=== PATIENT | female | born 1970 | race Caucasian/White ===

== ENCOUNTER 2020-12-17 12:22 | Outpatient (REF) | payer OTHER, SELFPAY ==
--- NOTE | 2020-12-17 10:50 | PAPFT_PTH ---
PATIENT: Amisha Chen LOC: [facility] U#:[id number] AGE/SX: 50/F ROOM: RE12/17/[address]: FLAQUITO Martinez : 1970 BED: DIS: 12/17/2020 SPEC #: [id number] RECD: 12/17/20 12:34 STATUS: TORRIENga REQ #: [id number] TAL: 12/17/20 10:[address]: Marlin Carmen DEPT: [facility] Cytology RECD BY: Arina Almanza ENTERED: 12/17/20 12:35 SP TYPE: PAPFT OTHR DR: Sindy Thomas Tissues: 1 - CX/ENDOCX FOR PAP SMEARS Procedures: PAP THIN PREP/UVM Screening HPV DNA PROBE Comments: [id number]
== END 2020-12-17 12:23 | disposition home or self-care (01) ==
LOC: LBN 12:22
PROVIDERS: PCP Family Medicine; Visit Provider Nurse Practitioner Family
DX: Z12.4 Encounter for screening for malignant neoplasm of cervix (principal); Z11.51 Encounter for screening for human papillomavirus (HPV); Z01.419 Encounter for gynecological examination (general) (routine) without abnormal findings
CPT/HCPCS: 88142; 87624

== ENCOUNTER 2021-01-12 02:37 | Outpatient (CLI) | payer OTHER, SELFPAY ==
--- NOTE | 2021-01-12 08:00 | DI.MAMMO_ITS ---
Exam(s) MAMMO SCREENING EXAM: MAMMO SCREENING CLINICAL HISTORY: screening,Z12.39 TECHNIQUE: Mammograms were interpreted according to the usual protocol including computer analysis w Xtract CAD system, tomosynthesis and C-view imaging. COMPARISON: FINDINGS: The breasts are heterogeneously dense. No dominant mass or clumped microcalcification is identified in either breast. The current examination is compared with previous examination of 2013 and there is new incompletely visualized area of focal nodularity seen in the lateral retroareolar portion of the left breast on CC view only. Possibility of a small new breast mass is raised. Additional mammogra phic views of the left breast are requested to include CC spot compression view. Breast ultrasound r ecommended as well. No other significant change seen. IMPRESSION: Additional mammographic views left breast and left breast ultrasound requested as described above. BI-RADS Category 0 - Assessment Incomplete: Need additional imaging evaluation Breast Density - Category C - Heterogeneously dense
--- NOTE | 2021-01-12 08:00 | DI.US_ITS ---
Exam(s) US PELVIS TRANSVAGINAL EXAM: US PELVIS TRANSVAGINAL CLINICAL HISTORY: Menorrhagia,N92.0 TECHNIQUE: Ultrasound performed using standard protocol. COMPARISON: US RIGHT BREAST ULTRASOUND from 08/30/2013 FINDINGS: Pelvic ultrasound was performed transabdominally and transvaginally. The uterus measures 8.6 x 3.8 x 5.1 cm. No focal myometrial abnormality seen. Endometrial stripe is about 7 millimeters in thickne ss and appears homogeneous, please correlate with menstrual status. No free fluid in the cul-de-sac. Limited scanning of the kidneys is unremarkable. The ovaries have a normal follicular appearance. Right ovary measures 23 x 21 x 17 millimeters and l eft ovary measures 25 x 27 x 19 millimeters. IMPRESSION: Negative pelvic ultrasound. DATA REPOSITORY:
== END 2021-01-12 02:57 ==
PROVIDERS: PCP Family Medicine; Visit Provider Nurse Practitioner Family
DX: Z12.31 Encounter for screening mammogram for malignant neoplasm of breast; N92.0 Excessive and frequent menstruation with regular cycle
CPT/HCPCS: 77063; 77067; 76830; 76856

== ENCOUNTER 2021-01-14 17:17 | Outpatient (REF) | payer OTHER, SELFPAY ==
--- NOTE | 2021-01-14 16:00 | ENDOMET_PTH ---
PATIENT: Amisha Chen LOC: N U#:[id number] AGE/SX: 50/F ROOM: RE01/14/[address]: Shirley Santos : 1970 BED: DIS: 01/14/2021 SPEC #: [id number] RECD: 01/14/21 17:25 STATUS: JULIAN REMinnie #: [id number] TAL: 01/14/21 16:[address]: Shirley Santos DEPT: Surgical Specimen RECD BY: Flavia Winn ENTERED: 01/14/21 17:25 SP TYPE: Endomet OTHR DR: Sindy Thomas Tissues: 1 - ENDOMETRIUM BX/MAURICIO Procedures: GROSS AND MICRO LEVEL 4 Comments: [id number]
== END 2021-01-14 17:18 | disposition home or self-care (01) ==
LOC: LBN 17:17
PROVIDERS: PCP Family Medicine; Visit Provider Obstetrics & Gynecology Gynecology
DX: N84.0 Polyp of corpus uteri (principal); N93.8 Other specified abnormal uterine and vaginal bleeding; N88.8 Other specified noninflammatory disorders of cervix uteri
CPT/HCPCS: 88305

== ENCOUNTER 2021-02-05 03:34 | Outpatient (CLI) | payer OTHER, SELFPAY ==
--- NOTE | 2021-02-05 | DI.US_ITS ---
Exam(s) MG MAMMO SCREEN CALL BACK UNI US BREAST LT LIMITED EXAM: US BREAST LT LIMITED CLINICAL HISTORY: F/U TO ABNL MAMMO AND SPOTS, FOCAL NODULARITY LT TECHNIQUE: Ultrasound performed using standard protocol. COMPARISON: US US PELVIS TRANSVAGINAL from 01/12/2021 FINDINGS: Additional mammographic views of left breast and left breast ultrasound are interpreted in conjunctio n. These examinations were obtained to evaluate new area of nodularity seen in the lower outer quadr ant of the left breast on recent mammogram. Additional mammographic views show a well-circumscribed 6 millimeter in diameter mass. Breast ultrasound shows a simple cyst measuring about 5 millimeters i n greatest diameter in the 3 o'clock position about 2 cm from nipple, corresponding to the mammograph ically identified abnormality. Breast ultrasound and additional mammographic view showed no other suspicious findings. IMPRESSION: No specific evidence of malignancy at this time. I would suggest that routine screening examinations resume with a bilateral mammogram in 12 months. BI-RADS Cat 2 - Benign Findings Breast Density - Category C - Heterogeneously dense DATA REPOSITORY:
== END 2021-02-05 03:54 ==
PROVIDERS: PCP Family Medicine; Visit Provider Nurse Practitioner Family
DX: R92.8 Other abnormal and inconclusive findings on diagnostic imaging of breast (principal); N60.02 Solitary cyst of left breast
CPT/HCPCS: 76642; 77063; 77067

== ENCOUNTER 2021-03-01 01:52 | Outpatient (CLI) | payer OTHER, SELFPAY ==
[2021-03-01 08:27] LABS: HCT 43.2 % (36.0-46.0); HGB 13.7 g/dL (11.2-15.7); MCH 27.2 pg (27.0-33.0); MCHC 31.7 % (32.0-36.0); MCV 85.9 fL (80-95); MPV 9.1 fL (8.0-11.0); Platelet Count 408 10^3/uL (130-400); RBC 5.03 10^6/uL (3.93-5.22); RDW 13.6 % (11.7-14.6); RDW-SD 42.8 fL; WBC 11.05 10^3/uL (4.4-10.8)
[2021-03-01 09:18] LABS: Anion Gap 5.6 mmol/L (3-11); BUN 6 mg/dL (7-18); CO2 24.4 mmol/L (21.0-32.0); CREATININE 0.8 mg/dL (0.55-1.02); Calcium 9.3 mg/dL (8.5-10.1); Chloride 109 mmol/L (98-107); Glucose 84 mg/dL (74-106); Potassium 4.2 mmol/L (3.5-5.1); Sodium 139 mmol/L (136-145)
== END 2021-03-01 01:53 | disposition home or self-care (01) ==
LOC: LBO 01:53
PROVIDERS: PCP Family Medicine; Visit Provider Obstetrics & Gynecology Gynecology
DX: N92.0 Excessive and frequent menstruation with regular cycle (principal); N94.6 Dysmenorrhea, unspecified; Z01.818 Encounter for other preprocedural examination; Z01.812 Encounter for preprocedural laboratory examination
CPT/HCPCS: 36415; 80048; 85027; 86850; 86900; 86901

== ENCOUNTER 2021-03-01 01:54 | Outpatient (CLI) | payer OTHER, SELFPAY ==
[2021-03-01 11:06] LABS: Source Nasal/Nares
[2021-03-01 16:25] LABS: COVID-19 PCR Negative (Negative)
== END 2021-03-01 01:55 | disposition home or self-care (01) ==
LOC: LBO 01:54
PROVIDERS: PCP Family Medicine; Visit Provider Obstetrics & Gynecology Gynecology
DX: Z20.822 Contact with and (suspected) exposure to COVID-19 (principal); Z01.818 Encounter for other preprocedural examination
CPT/HCPCS: 87635

== ENCOUNTER 2021-03-03 14:55 | Observation (INO) | payer OTHER, SELFPAY ==
[2021-03-03] VITALS (43 sets, daily range): BP systolic 84–121; BP diastolic 45–78; PULSE 56–74; RESP 11–17; TEMP 36.5–36.9; O2SAT 96–99; BMI 25.4
--- NOTE | 2021-03-03 06:54 | W.ANESPRE ---
General Info Date of Service Date Performed: 03/03/21 Height: 4 ft 11 in Weight: 57.153 kg Body Mass Index (BMI): 25.4 Surgical Procedure: Operation Date: 03/03/21 10:55 Proposed Procedures Side Surgeon p Hysterectomy Vaginal Laparoscopic Assist/Salpingectomy Bladder Cystoscopy Shirley Santos MD Meds Allergies and Home Medications Allergies Allergy/AdvReac Type Severity Reaction Status Date / Time No Known Allergies Allergy Unverified 03/03/21 07:16 Home Medication Medication Instructions Recorded norethindrone acetate 5 mg tablet 5 mg PO DAILY #30 tab 02/10/21 Current Visit Medications: Current Medications Generic Name Dose Route Start Last Admin Trade Name Freq PRN Reason Stop Dose Admin Ringer's Solution 1,000 mls @ 125 mls/hr 03/03/21 06:00 IV 04/01/21 23:59 INFUSION LEANNA Cefazolin Sodium 2,000 mg/ 100 mls @ 200 mls/hr 03/03/21 06:00 Sodium Chloride IVPB 03/03/21 23:59 PREOP LEANNA IV Miscellaneous Supplies 1 each 03/03/21 06:00 Iv Access IV 04/01/21 23:59 DIRECTED LEANNA Sodium Chloride 0 ml 03/03/21 06:00 Normal Saline Flush 10 Ml Syr IV 04/01/21 23:59 PRN PRN Sodium Chloride 0 ml 03/03/21 06:00 Normal Saline 10 Ml Vial IJ 04/01/21 23:59 DIRECTED PRN Sterile Water 0 ml 03/03/21 06:00 Water,Injection,Sterile 10 Ml Vial IJ 04/01/21 23:59 DIRECTED PRN PFSH Active Problems Active Problems: Problem Status Onset Code Deep inguinal pain, right R10.31 Dysmenorrhea 02/12/13 N94.6 Menorrhagia 02/12/13 N92.0 Medical History Medical History Deep inguinal pain, right ~ 1hr duration. ? iliopsoas origin. will refer to ortho. Surgical History Surgical History Appendectomy (~2008) Ligation of fallopian tube Tobacco Smoking/Tobacco Use Status: Current every day Tobacco Type: cigarettes Alcohol Alcohol Intake: current Alcohol intake frequency: holidays/special occasions only Substance Use Substance use: Never Substance use type: does not use Vital Signs and Lab Results Vital Signs Most Recent Vital Signs in EMR: Temp Pulse Resp BP Pulse Ox 36.5 C 71 16 121/78 99 03/03/21 07:25 03/03/21 07:25 03/03/21 07:25 03/03/21 07:25 03/03/21 07:25 Lab Results Blood Type / Crossmatch: Patient ABO/Rh O Positive 03/01/21 08:15 03/01/21 Antibody Screen NEGATIVE 03/01/21 08:15 03/01/21 Complete Blood Count: White Blood Count 11.05 10^3/uL (4.4-10.8) H 03/01/21 08:15 03/01/21 Red Blood Count 5.03 10^6/uL (3.93-5.22) 03/01/21 08:15 03/01/21 Hemoglobin 13.7 g/dL (11.2-15.7) 03/01/21 08:15 03/01/21 Hematocrit 43.2 % (36.0-46.0) 03/01/21 08:15 03/01/21 Platelet Count 408 10^3/uL (130-400) H 03/01/21 08:15 03/01/21 Complete Metabolic Panel: Sodium Level 139 mmol/L (136-145) 03/01/21 08:15 03/01/21 Potassium Level 4.2 mmol/L (3.5-5.1) 03/01/21 08:15 03/01/21 Chloride Level 109 mmol/L (98-107) H 03/01/21 08:15 03/01/21 Carbon Dioxide Level 24.4 mmol/L (21.0-32.0) 03/01/21 08:15 03/01/21 Blood Urea Nitrogen 6 mg/dL (7-18) L 03/01/21 08:15 03/01/21 Creatinine 0.8 mg/dL (0.55-1.02) 03/01/21 08:15 03/01/21 Estimated GFR/1.73 m2 >= 60.00 (mL/min/1.73m2) 03/01/21 08:15 03/01/21 Calcium Level 9.3 mg/dL (8.5-10.1) 03/01/21 08:15 03/01/21 Glucose Level 84 mg/dL (74-106) 03/01/21 08:15 03/01/21 Liver Function Panel: No Data to Display Coagulation Panel: No Data to Display Cardiac Panel: No Data to Display Arterial Blood Gas: No Data to Display Venous Blood Gas: No Data to Display Pancreas Panel: No Data to Display Thyroid Panel: No Data to Display Infectious Disease: Coronavirus (COVID-19)(PCR) Negative (Negative) 03/01/21 08:47 03/01/21 Coronavirus 2019 Source Nasal/Nares 03/01/21 08:47 03/01/21 Blood Cultures: No Data to Display Toxicology Panel: No Data to Display Panel: No Data to Display Anesthesia Assessment and Plan Anesthesia History Personal History: No History of Anesthesia Complications Family History: No Family History of Anesthesia Complications Exercise Tolerance Exercise Tolerance: Metabolic Equivalents>4 Pertinent Negatives Pertinent Negatives: No Symptoms of GERD, No Major Cardiovascular Symptoms or Complaints, No Major Pulmonary Symptoms or Complaints and No History of CVA/TIA Cardiac & Pulmonary Exam Cardiac Exam: Normal S1/S2 Heart Sounds Pulmonary Exam: Clear Bilateral Breath Sounds Airway Exam Known Difficult Airway: No Mallampati Class: 1 Mouth Opening: Normal (> 3cm) Thyromental Distance: Greater than 3 cm Neck Range of Motion: Full ROM Neck Circumference: Normal Teeth Condition: Normal Dentition ASA Classification ASA Score: ASA 2 Emergency Case?: No NPO Status NPO Status: NPO Clears >2 hours, Solids >8 hours Status Status: Negative HCG Anesthesia Plan Resuscitation Status: Full Code Anesthesia Technique: General Anesthesia Airway Planned: Endotracheal Tube Pain Management: Intrathecal Analgesia Monitors Used: Standard Monitors Preoperative Comments:: 50 yo female for hysterectomy due to menorrhagia, dysmenorrhea. PMHx: denies any major cardiac, pulmonary, renal, neuro, liver issues. Plan: GA/ETT, IT for pain control. +/-2nd IV.
[2021-03-03] MEDS: Lactated Ringers 1,000 ML 125 ML IV ×3 (07:38→20:12)
[2021-03-03] MEDS: ceFAZolin 2,000 MG in Normal Saline 100 ML 200 MG IVPB (12:05)
--- NOTE | 2021-03-03 13:00 | UTER_PTH ---
PATIENT: Amisha Chen LOC: ICU U#:[id number] AGE/SX: 50/F ROOM: ICU.221 RE03/03/[address]: Shirley Santos : 1970 BED: A DIS: 03/04/2021 SPEC #: [id number] RECD: 03/03/21 17:37 STATUS: JULIAN REQ #: [id number] TAL: 03/03/21 13:[address]: Shirley Santos DEPT: Surgical Specimen RECD BY: Flavia Winn ENTERED: 03/03/21 17:38 SP TYPE: UTER OTHR DR: Sindy Thomas Tissues: 1 - UTERUS W OR W/O OVARIES(NOT TUMOR/PROLAPSE) Procedures: GROSS AND MICRO LEVEL 5 Comments: [id number]
[2021-03-03] MEDS: Bupivacaine 0.25% Pres-Free 30 ML VIAL (13:33)
--- NOTE | 2021-03-03 15:13 | W.ANESPOSTOP ---
Postoperative Evaluation Date, Time and Location Date Performed: 03/03/21 Time Performed: 15:13 Patient Location: PACU Vital Signs Most Recent Imported Vital Signs: Most Recent Vital Signs Temp Pulse Resp BP Pulse Ox 36.9 C 56 L 12 96/58 L 98 03/03/21 14:59 03/03/21 14:59 03/03/21 14:59 03/03/21 14:59 03/03/21 14:59 Pain Score Most Recent Pain Score: denies pain Assessment Mental Status: Awake (Alert & Oriented to Patient Baseline) Airway and Respiratory Function: Patent airway with normal (patient baseline) respiratory exam Cardiovascular Function: Hemodynamically Stable Hydration Status: Adequately Hydrated Nausea & Vomiting: No Nausea or Vomiting Pain: Pt. Denies Any Pain Peripheral Nerve Block: Patient did not receive a nerve block
[2021-03-03] MEDS: Ketorolac 30 MG/ML VIAL IVP (20:11)
[2021-03-03] MEDS: Docusate Sodium 100 MG CAP PO (20:11)
[2021-03-04] VITALS (46 sets, daily range): BP systolic 97–104; BP diastolic 58–67; PULSE 56–67; RESP 14–15; TEMP 36–37.2; O2SAT 95–97
[2021-03-04] MEDS: Ketorolac 30 MG/ML VIAL IVP ×2 (02:23→08:45)
[2021-03-04] MEDS: Lactated Ringers 1,000 ML 125 ML IV (03:53)
[2021-03-04 07:00] LABS: HCT 35.8 % (36.0-46.0); HGB 11.5 g/dL (11.2-15.7); MCH 27.2 pg (27.0-33.0); MCHC 32.1 % (32.0-36.0); MCV 84.6 fL (80-95); MPV 9.8 fL (8.0-11.0); Platelet Count 313 10^3/uL (130-400); RBC 4.23 10^6/uL (3.93-5.22); RDW 13.6 % (11.7-14.6); RDW-SD 42.2 fL; WBC 17.87 10^3/uL (4.4-10.8)
[2021-03-04] MEDS: Normal Saline Flush 10 ML SYR IV (08:45)
[2021-03-04] MEDS: Docusate Sodium 100 MG CAP PO (08:46)
--- NOTE | 2021-03-04 11:10 | W.PM.DS.N ---
Date of service: 03/04/21 Time of Service: 11:10 DS: Diagnosis Discharge Diagnosis (1) History of laparoscopic-assisted vaginal hysterectomy: Status: Acute (2) Dysmenorrhea: Status: Acute (3) Menorrhagia: Status: Acute Discharge Plan Disposition Patient Disposition: HOME Condition: Fair Discharge Details Reason For Visit: Laparoscopic Assisted Vaginal Hysterectomy Admit Date/Time: 03/03/21 14:55 Admit Provider: Shirley Santos Attending Provider: Shirley Santos Primary Care Provider: Sindy Thomas [facility] Course Hospital Course: 50yo G4,P2 female with a hx of abnormal uterine bleeding and dysmenorrhea was admitted the morning of surgery and underwent the above-stated procedure along with a risk reducing bilateral salpingectomy. Her postop course was uncomplicated she was discharged home on postop day #1 voiding spontaneously and tolerating a regular diet. Final pathology is pending. Home Meds and New Rx's Prescriptions: Discontinued norethindrone acetate 5 mg tablet 5 mg PO DAILY Qty: 30 RF: 3 Discharge Instructions Additional Instructions: You have skin glue on your incision. You may shower in 24 hours. There is no need to peel off the skin glue unless it becomes itchy. Avoid constipation. Avoid driving a car for approximately 2 weeks until your pain has resolved. You may use Percocet 5/325mg1 tablet every 6 hours as needed for severe pain. Otherwise ibuprofen 600 mg every 6 hours and Acetaminophen 500 mg every 6 hours will be effective for pain control. Keep her appoint with Dr. Santos in 2 weeks. No lifting greater than 10 pounds for 6 weeks. Stand Alone Forms: DSU Post Gynecology Surgery Activity:: Activity as Tolerated Equipment/Supplies:: No Equipment Needed Diet:: As Tolerated Discharge Orders Discharge Orders: Discharge Order (Routine); Ordered 03/04/21 Ordered By: Shirley Santos DS: Summary Time Spent with Patient providing and/or coordinating discharge services: Less than 30 minutes Status at Discharge Functional status at discharge: independent ambulation Overall status at discharge: patient is progressing back to baseline Mental Status: mental status grossly normal Speech and Movement: speech and movement normal Mood: congruent mood Affect: normal affect Exam Narrative Exam Narrative: Patient was admitted the morning of surgery and underwent a laparoscopic-assisted vaginal hysterectomy with risk reduction bilateral salpingectomy. Her postop course was uncomplicated she was discharged home on postop day #1 successfully voiding after De La Cruz catheter was removed. At the time of discharge she reported satisfactory pain control with NSAIDs. I recommended a discharge prescription of Percocet 5/325 mg in the event that she had additional pain. Const General: no acute distress Nutritional Appearance: average body habitus Orientation: alert, awake and oriented x3 Resp Effort & Inspection: normal respiratory effort Auscultation: clear to auscultation bilaterally Cardio Rate: regular rate Rhythm: regular rhythm GI Inspection: abdominal wall ecchymosis (Inferior to vertical umbilical incision) and incision (Clean, dry, intact. Skin glue covering incisions.) Palpation: soft, no hepatosplenomegaly and tender in the epigastrum and periumbilically (Mild tenderness to palpation) General: deferred Skin General skin exam: no rashes or lesions noted Extrem General: normal to inspection Psych Appearance: grossly normal Mental Status: mental status grossly normal Speech and Movement: speech and movement normal Mood: congruent mood Affect: normal affect DS: Data Vitals/I&O Vitals and I&O: Vital Signs Temperature 99.0 F 03/04/21 08:51 Temperature Source Temporal Artery Scan 03/04/21 08:51 Pulse 66 03/04/21 08:26 Pulse Rhythm Regular 03/04/21 08:51 Respiratory Rate 15 03/04/21 04:00 Respiratory Effort Non-Labored 03/04/21 08:51 Respiratory Depth Normal 03/04/21 08:51 Respiratory Pattern Normal 03/04/21 08:51 Blood Pressure 100/61 03/04/21 08:26 Blood Pressure Mean 70 03/04/21 08:26 Pulse Oximetry 97 03/04/21 08:26 Respiratory End-tidal CO2 34 03/03/21 15:14 Oxygen Delivery Method Room Air 03/04/21 08:51 Oxygen Flow Rate 0 03/04/21 08:51 Pain Level 5 03/04/21 08:51 Intake & Output 03/03/21 03/03/21 03/04/21 11:59 23:59 11:59 Intake Total 2049 1280.417 / 1280.417 Output Total 350 / 350 250 / 250 Balance 1700 / 1700 1030.417 / 1030.417 Weight 128 lb 11.999 oz 125 lb 10.616 oz Intake: IV 2049 960.417 / 960.417 Oral 320 / 320 Output: Urine 250 / 250 250 / 250 Estimated Blood Loss 100 / 100 Other: Urine Color Yellow Light Brianna Urine Appearance Clear Clear Comment NOT EMPTIED IN PACU< 100 CC Emesis Description None Data Completed and Pending Labs on day of discharge: Labs from last 24 hours 03/04/21 06:16 WBC 17.87 H RBC 4.23 Hgb 11.5 D Hct 35.8 L MCV 84.6 MCH 27.2 MCHC 32.1 RDW 13.6 Plt Count 313 MPV 9.8 PFSH Medical History Deep inguinal pain, right ~ 1hr duration. ? iliopsoas origin. will refer to ortho. Surgical History (Updated 03/04/21 @ 09:38 by Shirley Santos MD) Appendectomy (~2008) Ligation of fallopian tube Family History (Updated 12/17/20 @ 10:32 by Marlin Carmen NP) Father MVA Mother Well adult Social History Smoking/Tobacco Use Status: Current every day Tobacco Type: cigarettes Smoking risk assessment performed?: Yes Alcohol Intake: current Alcohol Intake frequency: holidays/special occasions only Drug use: Never Substance use type: does not use Do you feel safe at home: Yes Do you feel safe in your relationship?: Yes
[2021-03-04] MEDS: Ibuprofen 600 MG TAB PO (12:58)
[2021-03-04] MEDS: oxyCODONE 5 mg/Acetaminophen 325 mg TAB PO (12:58)
--- NOTE | 2021-03-04 13:02 | CHAPLAIN ---
Jennifer was sitting up in the chair and said she was waiting to be discharged home to [place]. She was very pleasant and happy to be being discharged.
== END 2021-03-04 13:20 | disposition home or self-care (01) | DRG 743 ==
LOC: ICU 03-04 00:18
PROVIDERS: Admitting Provider Obstetrics & Gynecology Gynecology; PCP Family Medicine; Visit Provider Obstetrics & Gynecology Gynecology
PROC: 0UT9FZZ Resection of Uterus, Via Natural or Artificial Opening With Percutaneous Endoscopic Assistance (ICD-10-PCS; CPT 58552; principal; 2021-03-03 10:45)
DX: N94.6 Dysmenorrhea, unspecified (principal); N92.0 Excessive and frequent menstruation with regular cycle; F17.210 Nicotine dependence, cigarettes, uncomplicated; N80.0 Endometriosis of uterus
CPT/HCPCS: 58552; 36415; 81025; 85027; 88307; J0690; J1100; J1885; J2001; J2250; J2405; J2704; J3010

== ENCOUNTER 2021-03-29 15:46 | Outpatient (CLI) | payer OTHER, SELFPAY ==
--- NOTE | 2021-03-29 14:45 | DI.RAD_ITS ---
Exam(s) XR HIP LT COMPLETE AP PELVIS EXAM: XR HIP LT COMPLETE AP PELVIS CLINICAL HISTORY: right hip pain. TECHNIQUE: 2D digital imaging was performed. COMPARISON: No exams were available for comparison FINDINGS: No evidence of pelvic nor hip fracture. No degenerative changes. No hip dysplasia. Surgical clips in right iliac fossa noted which may be from prior cholecystectomy. Bone density is normal. No osseous lesions. No evidence of avascular necrosis. IMPRESSION: DATA REPOSITORY: RADIATION DOSE DELIVERED:
== END 2021-03-29 15:47 | disposition home or self-care (01) ==
LOC: DIORS 15:46
PROVIDERS: PCP Family Medicine; Referring Provider Family Medicine; Visit Provider Physician Assistant
DX: M25.551 Pain in right hip (principal)
CPT/HCPCS: 73502

== ENCOUNTER 2021-04-29 01:27 | Outpatient (CLI) | payer OTHER, SELFPAY ==
--- NOTE | 2021-04-29 07:30 | DI.RAD_ITS ---
Exam(s) RF JOINT INJECTION FLUORO GUID EXAM: RF JOINT INJECTION FLUORO GUID CLINICAL HISTORY: L HIP INJ UNDER FLUORO,lt hip pain, m25.552 TECHNIQUE: Fluoroscopy provided. Radiologist not present. CONTRAST MATERIAL: None COMPARISON: No exams were available for comparison FINDINGS: Fluoroscopy was provided for Dr. Leggett during left hip therapeutic injection. Submitted image(s) reveal needle placement at junction lateral aspect femoral head and neck. Intra-a rticular contrast injected Please refer to the procedure report for complete details. Cumulative Dose: Ka,r=0.895 mGy IMPRESSION: RADIATION DOSE DELIVERED:
[2021-04-29] MEDS: Omnipaque 300 MG/ML 10 ML BTL IJ (13:53)
[2021-04-29] MEDS: methylPREDNISolone ACETATE 80 MG/ML VIAL IM ×2 (13:54→14:02)
--- NOTE | 2021-04-29 22:02 | OPPNE_ITS ---
Date of service: 04/29/21 Time of Service: 13:02 Procedure Note Procedure: Left Hip Injection with Fluoroscopic Guidance Surgeon/Proceduralist/Physician: Jonathan Leggett Procedure Diagnosis: Left Hip Pain Procedure Indications: Amisha has had persistent pain of the LEFT hip and groin. Noninvasive measures have been tried. To serve as both diagnostic and therapeutic, an injection under fluoroscopy was recommended. I had discussed the risks of the procedure and the patient elected to proceed. Procedure Description: Amisha was greeted in the flouroscopy room. The correct side was identified and the consent was reviewed with the patient and signed. The patient was then placed in the supine position on the fluoroscopy table. The LEFT hip was then prepped with Chloraprep. The anterolateral injection starting point was identiifed by bony landmarks and fluoroscopy. The skin and soft tissue in the tract of the injection was anesthetized with 1% Lidocaine. A spinal needle was then inserted deep into the hip joint at the level of the lateral femoral neck under fluoroscopic guidance. A small amount of Omnipaque solution was injected to confirm intraarticular placement. Once confirmed, the hip was injected with 6cc of 0.5% Bupivicaine and 80mg of Depo- Medrol. A bandaid was placed on the injection site. The patient tolerated the procedure well.
== END 2021-04-29 01:47 ==
PROVIDERS: PCP Family Medicine; Visit Provider Student in an Organized Health Care Education/Training Program
DX: M25.552 Pain in left hip (principal); R10.32 Left lower quadrant pain
CPT/HCPCS: 20610; 77002; J1040

== ENCOUNTER 2021-05-10 01:04 | Outpatient (CLI) | payer OTHER, SELFPAY ==
--- NOTE | 2021-05-10 07:00 | DI.CT_ITS ---
Exam(s) CT PELVIC W EXAM: CT PELVIC W CLINICAL HISTORY: ? obturator hernia on the left,K45.8. TECHNIQUE: Imaging Protocol: Axial computed tomography images with coronal and sagittal reformatted images were created and reviewed CONTRAST MATERIAL: Intravenous: Omnipaque 100cc Oral: Yes COMPARISON: CR XR HIP LT COMPLETE AP PELVIS from 03/29/2021 FINDINGS: This study was limited to the pelvis, as per request. PELVIS: OSSEOUS:No pelvic or hip fractures evident. No significant osseous lesions. ANTERIOR ABDOMINAL WALL/GI:No evidence of bowel obstruction. Appendix is surgically absent.No eviden ce of sigmoid diverticulitis.No evidence of anterior abdominal hernia. No inguinal hernia evident. LYMPH NODES: There is no intrapelvic nor inguinal adenopathy. REPRODUCTIVE: Uterus is surgically absent. Both ovaries exhibit normal size. There is a peripherall y enhancing cyst in the right ovary measuring 1.4 x 1.0 cm. No free fluid in the pelvis. URINARY BLADDER: No calculi nor obvious masses evident Small cyst in the partially included left kidney noted measuring 9 millimeters. IMPRESSION: 1. No obvious hernias. No bowel obstruction. 2. The appendix is surgically absent. 3. Uterus appears to be surgically absent. 14 x 10 millimeters cyst in the right ovary. RADIATION DOSE DELIVERED: 524.2mGy.cm Total DLP DATA REPOSITORY: All CT scans at this facility are submitted to the National Radiology Data Registry (NRDR) Dose Index Registry (DIR) with the [employer] ([employer]). RADIATION OPTIMIZATION: All CT scans at this facility use at least one of these dose optimization te chniques: automated exposure control; mA and/or kV adjustment per patient size (includes targeted exa ms where dose is matched to clinical indication); or iterative reconstruction.
[2021-05-10] MEDS: Omnipaque 350 MG/ML 50 ML BTL IJ (08:47)
[2021-05-10] MEDS: Omnipaque 350 MG/ML 100 ML BTL IJ (10:16)
[2021-05-10] MEDS: Normal Saline - Diluent 50 ML VIAL IV (10:17)
[2021-05-10] MEDS: Normal Saline Flush 10 ML SYR IVP (10:17)
[2021-05-10] MEDS: Breeza Beverage 473 ML BTL PO (10:19)
== END 2021-05-10 01:24 ==
PROVIDERS: PCP Family Medicine; Visit Provider Surgery
DX: K45.8 Other specified abdominal hernia without obstruction or gangrene (principal); N83.201 Unspecified ovarian cyst, right side
CPT/HCPCS: 72193; J3490; Q9967

== ENCOUNTER 2021-05-13 09:50 | Emergency (ER) | payer OTHER, SELFPAY ==
[2021-05-13 09:54] VITALS: BP 122/82; PULSE 101; RESP 16; TEMP 37.2; O2SAT 98
--- NOTE | 2021-05-13 09:55 | ED.GENADUL_ITS ---
Discharge Plan Disposition Patient Disposition: HOME Condition: Stable Discharge Details Clinical Impression: Lumbar strain Primary Care Provider: Sindy Thomas ED Provider: Coco Desir Home Meds and New Rx's Prescriptions: New methocarbamol 500 mg tablet 500 mg PO Q6H PRN (Reason: muscle spasm) Qty: 14 RF: 0 prednisone 20 mg tablet 40 mg PO DAILY 3 Days Qty: 6 RF: 0 naproxen [Naprosyn] 500 mg tablet 500 mg PO BID PRN (Reason: pain) Qty: 14 RF: 0 Continued acetaminophen [Tylenol Extra Strength] 500 mg tablet 500 mg PO Q6H PRNRF: 0 Discharge Instructions Instructions: Low Back Strain (ED), Core Strengthening Exercises (ED) Additional Instructions: Alternate ice and heat to the affected area(s) several times daily for 20 minutes at a time. Alternate tylenol and motrin as needed and directed for pain. Prescriptions for steroids, anti-inflammatories and muscle relaxants have been sent electronically to your pharmacy. Take this as directed. You can also continue to take [id number] Tylenol as needed and directed f or pain. Once your symptoms are completely resolved, it is recommended to practice core strengthening exercises and stretching to prevent further back spasm or injury. Follow-up with your primary care doctor in 1 week. Return to the emergency department with any worsening or new concerning symptoms such as fever, vomiting, abdominal pain, urinary symptoms or any other concerns. Stand Alone Forms: Work Release Discharge Data Discharge Date/Time-TO BE ENTERED AT DEPARTURE: 05/13/21 11:08 Discharge Physician: Coco Desir Medical Decision Making 50-year-old female presents with right-sided lower back pain for the past 5 days, worse with movement. No cauda equina or urinary symptoms. Patient appears uncomfortable with movement. Pain is reproducible to palpation. She appears in pain with walking around room and attempting to get on the stretcher. History and presentation does not appear consistent with kidney stone, UTI, cauda equina syndrome. She has no focal deficits on exam. Neurovascularly intact. Do not see an indication for lab work or imaging. Urinalysis obtained by nursing on arrival. Will give a dose of Toradol IM, Valium and prednisone p.o. Patient reassessed and she feels much better and feels good to go home. Prescriptions for steroids, anti-inflammatories and muscle relaxers sent electronically to her pharmacy. Advised to follow up with the primary care doctor for re-evaluation. Usual and customary return precautions given prior to discharge. Medical Records Medical records reviewed: Yes I reviewed the patient's medical records. Lab Data Lab results reviewed: Yes I reviewed the patient's lab results. Labs: Laboratory Tests Range/Units 05/13/21 10:05 Urine Color (Yellow) Yellow Urine Clarity (Clear) Sl Cloudy Urine pH (5-8) 5.5 Ur Specific [place] (1.005-1.025) 1.010 Urine Protein (Negative) mg/dL Negative Urine Ketones (Negative) mg/dL Negative Urine Blood (Negative) Negative Urine Nitrite (Negative) Negative Urine Bilirubin (Negative) Negative Urine Urobilinogen (Up TO 0.2) EU/dL 0.2 Ur Leukocyte Esterase (Negative) Negative Urine Glucose (Negative) mg/dL Negative HPI General Mode of arrival: ambulatory . Date/Time Provider Initiated Documentation: 05/13/21 09:51 . Limitations to Documentation: no limitations . Information obtained by: patient . HPI Narrative: Pt is a 50yo F who presents to the emergency department w/ a c/o right sided back pain for the past 5 days, worse this morning while walking at work. Patient states the pain started 5 days ago at home. She states the pain is worse with movement, bending and walking. She denies any radiation of pain to her leg, leg numbness or weakness, bowel or bladder incontinence, saddle anesthesia, urinary symptoms, fever, nausea, vomiting or diarrhea. She denies any change in appetite, chest pain or shortness of breath. Patient took Tylenol at home a few days ago without relief. She has not taken any ibuprofen and has not taken any medication today for her pain. Related Data Home Medications Medication Instructions Recorded Confirmed acetaminophen 500 mg tablet 500 mg PO Q6H PRN 03/16/21 05/13/21 methocarbamol 500 mg PO Q6H PRN #14 tab 05/13/21 naproxen [Naprosyn] 500 mg PO BID PRN #14 tab 05/13/21 prednisone 40 mg PO DAILY 3 Days #6 tab 05/13/21 Previous Rx's Medication Instructions Recorded methocarbamol 500 mg PO Q6H PRN #14 tab 05/13/21 naproxen [Naprosyn] 500 mg PO BID PRN #14 tab 05/13/21 prednisone 40 mg PO DAILY 3 Days #6 tab 05/13/21 Allergies Allergy/AdvReac Type Severity Reaction Status Date / Time No Known Allergies Allergy Unverified 05/13/21 10:00 Review of Systems All systems reviewed & are unremarkable except as noted in HPI and below Constitutional Constitutional: Reports as per HPI, Denies chills and Denies fever(s) Eyes Eyes: Denies blurry vision ENT Ears, Nose, Mouth, and Throat: Denies dizziness, Denies sore throat and Denies throat swelling Cardiovascular Cardiovascular: Denies chest pain and Denies dyspnea Respiratory Respiratory: Denies cough and Denies dyspnea Gastrointestinal Gastrointestinal: Denies abdominal pain, Denies diarrhea and Denies vomiting Genitourinary Genitourinary: Denies hematuria and Denies dysuria Musculoskeletal Musculoskeletal: Reports back pain and Denies numbness Integumentary/Breasts Skin/Breast: Denies lesions and Denies rash Neurologic Neurologic: Denies dizziness, Denies localized weakness and Denies numbness Allergic/Immunologic Allergic/Immunologic: Denies throat swelling [facility] Active Problem List (Updated 05/13/21 @ 10:26 by Coco Desir DO) Lumbar strain (Acute) Encounter for examination following surgery (Acute) Femoral acetabular impingement (Acute) History of laparoscopic-assisted vaginal hysterectomy (Acute) Medical History (Updated 05/13/21 @ 10:37 by Coco Desir DO) Dysmenorrhea (02/12/13) Menorrhagia (02/12/13) Surgical History (Updated 05/13/21 @ 10:26 by Coco Desir DO) Appendectomy (~2008) History of bilateral tubal ligation History of hysterectomy Family History Father MVA Mother Well adult Social History Smoking/Tobacco Use Status: Current every day Tobacco Type: cigarettes Smoking risk assessment performed?: Yes Alcohol Intake: current Drug use: Never Substance use type: does not use Do you feel safe at home: Yes Do you feel safe in your relationship?: Yes Exam Const General: cooperative, uncomfortable and no acute distress Orientation: alert, awake and oriented x3 HENMT Head: normal to inspection Face and sinus: normal facial exam Eyes General: appearance normal, both eyes and all related structures Pupils: PERRL EOM: EOM intact bilaterally Neck Neck: normal visual inspection and No submandibular swelling Lymphatic: no lymphadenopathy noted Chest Chest: normal inspection of the chest and no tenderness Resp Effort & Inspection: normal respiratory effort and able to speak in complete sentences Auscultation: clear to auscultation bilaterally Cardio Rate: regular rate Rhythm: regular rhythm GI Inspection: normal to inspection Palpation: soft, not firm, not rigid and nontender Auscultation: normal bowel sounds Back/Spine/Pelvis Thoracic/Lumbar Spine: thoracic and lumbar spine normal to inspection, paraspinal tenderness (R lumbar paraspinal region) and No lumbar spinal tenderness Skin General skin exam: no rashes or lesions noted Neuro General: patient alert, patient awake and patient oriented x3 Cognition: normal cognition Speech: speech normal Motor: muscle tone normal throughout and strength 5/5 throughout Sensory Exam: no sensory deficits noted DTR's: Rt Patellar: 2+, Lt Patellar: 2+, Rt Ankle: 2+ and Lt Ankle: 2+ Plantar Reflexes: Equivocal: bilateral (negative babinski b/l ) Extrem General: normal to inspection, full ROM, capillary refill normal, no calf tenderness bilaterally and no edema Psych Appearance: grossly normal Mental Status: mental status grossly normal Speech and Movement: speech and movement normal Affect: normal affect
[2021-05-13 10:20] LABS: Bilirubin Negative (Negative); Blood Negative (Negative); Clarity Sl Cloudy (Clear); Glucose Negative (Negative); Ketones Negative (Negative); Leukocyte Esterase Negative (Negative); Nitrite Negative (Negative); Urobilinogen 0.2 EU/dL (Up TO 0.2); pH 5.5 (5-8)
[2021-05-13] MEDS: diazePAM 5 MG TAB PO (10:31)
[2021-05-13] MEDS: Ketorolac 60 MG/2 ML VIAL IM (10:31)
[2021-05-13] MEDS: predniSONE 20 MG TAB 60 MG PO (10:31)
[2021-05-13 10:57] VITALS: BP 107/72; PULSE 87; TEMP 36.9; O2SAT 97
[2021-05-13 10:59] VITALS: BP 107/72; PULSE 87; TEMP 36.9; O2SAT 97
== END 2021-05-13 11:08 | disposition home or self-care (01) ==
LOC: ER 10:43
PROVIDERS: Emergency Provider Physician Assistant; PCP Family Medicine
DX: S39.012A Strain of muscle, fascia and tendon of lower back, initial encounter (principal); X58.XXXA Exposure to other specified factors, initial encounter
CPT/HCPCS: 96374; 99284; 81003; 99283; J1885; J7512